=== PATIENT | female | born 1985 | race Caucasian/White ===

== ENCOUNTER 2018-03-17 13:46 | Observation (INO) | payer OTHER ==
[~2018-03-17 13:46] MED LIST: DEXAMETHASONE 4 MG/ML 1 ML INJ; ONDANSETRON 4 MG INJ; ROCURONIUM 50 MG INJ
[2018-03-17] MEDS ORDERED: FENTAnyl 50 MCG/ML VIAL (15:29)
[2018-03-17] MEDS ORDERED: MIDAZOLAM 1 MG/ML 2 ML INJ (15:29)
[2018-03-17] MEDS ORDERED: LIDOCAINE 2% (SDV) 5 ML INJ (15:30)
[2018-03-17] MEDS ORDERED: SUCCINYLCHOLINE CHLORIDE 100 MG/5 ML SYG IV (15:30)
[2018-03-17] MEDS ORDERED: PROPOFOL 20 ML (15:30)
[2018-03-17] MEDS ORDERED: METOCLOPRAMIDE 10 MG INJ (15:31)
[2018-03-17] MEDS ORDERED: ACETAMINOPHEN 1000MG/100ML IV 100 ML (15:42)
[2018-03-17] MEDS ORDERED: PROVENTIL HFA 6.7GM INHALER (17:00)
[2018-03-17] MEDS ORDERED: LABETALOL HCL 20MG INJ IV (18:00)
[2018-03-17] MEDS ORDERED: IPRATROPIUM (NEB) 0.5 MG/2.5 ML AMP HHN (18:00)
[2018-03-17] MEDS ORDERED: HYDROmorphONE 1 MG/5 ML IV SYRINGE IV ×2 (18:00)
[2018-03-17] MEDS ORDERED: MEPERIDINE 25 MG INJ IV (18:00)
[2018-03-17] MEDS ORDERED: FENTAnyl 50 MCG/ML VIAL IV (18:00)
[2018-03-17] MEDS ORDERED: DIPHENHYDRAMINE 50 MG INJ IV (18:00)
[2018-03-17] MEDS ORDERED: hydrALAzine 20 MG INJ IV (18:00)
[2018-03-17] MEDS ORDERED: ONDANSETRON 4 MG INJ IV (18:00)
[2018-03-17] MEDS: FENTAnyl 50 MCG/ML VIAL IV (18:12)
[2018-03-17] MEDS: METOPROLOL 5 MG INJ IV (18:16)
[2018-03-17 19:35] LABS: ADD MAN DIFF? NO
[2018-03-17 19:38] LABS: BASOPHILS % 0.3 % (0.0-2.0); EOSINOPHILS # 0.1 10^3/ul (0.0-0.5); EOSINOPHILS % 0.4 % (0.0-7.0); HEMATOCRIT 40.9 % (37.0-47.0); HEMOGLOBIN 14.1 g/dl (12.0-16.0); LYMPHOCYTES # 1.2 10^3/ul (0.8-2.9); LYMPHOCYTES % 8.8 % (15.0-51.0); MEAN CORPUSCULAR HEMOGLOBIN 28.5 pg (29.0-33.0); MEAN CORPUSCULAR HGB CONC 34.5 g/dl (32.0-37.0); MEAN CORPUSCULAR VOLUME 82.8 fl (82.0-101.0); MEAN PLATELET VOLUME 10.3 fl (7.4-10.4); MONOCYTE # 0.3 10^3/ul (0.3-0.9); MONOCYTES % 2.1 % (0.0-11.0); NEUTROPHIL # 12.1 10^3/ul (1.6-7.5); NEUTROPHILS % 87.9 % (39.0-77.0); PLATELET COUNT 347 10^3/UL (140-415); RED BLOOD COUNT 4.94 10^6/ul (4.20-5.40); RED CELL DISTRIBUTION WIDTH 12.7 % (11.5-14.5)
[2018-03-17 19:38] LABS: WHITE BLOOD COUNT 13.7 10^3/ul (4.8-10.8)
[2018-03-17 19:56] LABS: HEMOGLOBIN A1C 6.2 % (0-5.9)
[2018-03-17 19:59] LABS: ANION GAP 14 (8-16); BLOOD UREA NITROGEN 10 mg/dl (7-20); CALCIUM 8.7 mg/dl (8.4-10.2); CARBON DIOXIDE 27 mmol/L (21-31); CHLORIDE 103 mmol/L (97-110); CREATININE 0.86 mg/dl (0.44-1.00); GLUCOSE 137 mg/dl (70-220); POTASSIUM 3.5 mmol/L (3.5-5.1); SODIUM 140 mmol/L (135-144)
[2018-03-17 20:08] LABS: B-TYPE NATRIURETIC PEPTIDE 77 PG/ML (0-125)
[2018-03-17] MEDS ORDERED: FAMOTIDINE 20 MG TAB PO (21:00)
[2018-03-17] MEDS: KETOROLAC 30 MG INJ IV (21:52)
[2018-03-18] MEDS: KETOROLAC 30 MG INJ IV ×2 (05:23→11:43)
[2018-03-18] MEDS: METOPROLOL 5 MG INJ IV (08:44)
[2018-03-18] MEDS: LISINOPRIL 20 MG TAB PO ×2 (08:49→16:20)
[2018-03-18] MEDS: ACETAMINOPHEN 325 MG TAB PO (14:12)
== END 2018-03-18 19:00 | disposition home or self-care (01) ==
LOC: SDS 13:46 → REC 17:35 → TEL 18:54
DX: J35.01 Chronic tonsillitis (principal); E66.01 Morbid (severe) obesity due to excess calories; Z68.42 Body mass index [BMI] 45.0-49.9, adult; E78.5 Hyperlipidemia, unspecified; K21.9 Gastro-esophageal reflux disease without esophagitis; G47.30 Sleep apnea, unspecified; Z86.73 Personal history of transient ischemic attack (TIA), and cerebral infarction without residual deficits
CPT/HCPCS: 42826; 80048; 83036; 83880; 84703; 85025; 88304; 92610; 99217

== ENCOUNTER 2018-06-05 12:33 | Day surgery (SDC) | payer OTHER ==
[2018-06-05 13:48] LABS: ADD MAN DIFF? NO
[2018-06-05 13:51] LABS: WHITE BLOOD COUNT 9.2 10^3/ul (4.8-10.8)
[2018-06-05 13:51] LABS: BASOPHILS % 0.4 % (0.0-2.0); EOSINOPHILS # 0.2 10^3/ul (0.0-0.5); HEMATOCRIT 40.7 % (37.0-47.0); LYMPHOCYTES # 2.6 10^3/ul (0.8-2.9); LYMPHOCYTES % 28.3 % (15.0-51.0); MEAN CORPUSCULAR HEMOGLOBIN 27.6 pg (29.0-33.0); MEAN CORPUSCULAR HGB CONC 34.4 g/dl (32.0-37.0); MEAN CORPUSCULAR VOLUME 80.1 fl (82.0-101.0); MEAN PLATELET VOLUME 10.2 fl (7.4-10.4); MONOCYTE # 0.7 10^3/ul (0.3-0.9); MONOCYTES % 7.9 % (0.0-11.0); NEUTROPHIL # 5.6 10^3/ul (1.6-7.5); NEUTROPHILS % 61.1 % (39.0-77.0); PLATELET COUNT 298 10^3/UL (140-415); RED BLOOD COUNT 5.08 10^6/ul (4.20-5.40); RED CELL DISTRIBUTION WIDTH 13.1 % (11.5-14.5)
[2018-06-05] MEDS ORDERED: CEFAZOLIN 2 GM/50 ML (PMX) 50 ML IVPB (14:00)
[2018-06-05] MEDS ORDERED: SOD CHLORIDE 0.9% 1,000 ML IV (14:00)
[2018-06-05 14:08] LABS: ALANINE AMINOTRANSFERASE 27 IU/L (13-69); ALBUMIN 3.8 g/dl (3.3-4.9); ALBUMIN/GLOBULIN RATIO 1.05; ALKALINE PHOSPHATASE 81 IU/L (42-121); ANION GAP 15 (8-16); ASPARTATE AMINO TRANSFERASE 23 IU/L (15-46); BILIRUBIN,INDIRECT 1.3 mg/dl (0-1.1); BILIRUBIN,TOTAL 1.3 mg/dl (0.2-1.3); BLOOD UREA NITROGEN 8 mg/dl (7-20); CALCIUM 9.1 mg/dl (8.4-10.2); CARBON DIOXIDE 23 mmol/L (21-31); CHLORIDE 104 mmol/L (97-110); CREATININE 0.71 mg/dl (0.44-1.00); GLUCOSE 89 mg/dl (70-220); POTASSIUM 3.7 mmol/L (3.5-5.1); SODIUM 138 mmol/L (135-144); TOTAL PROTEIN 7.4 g/dl (6.1-8.1)
[2018-06-05 14:11] LABS: INR 0.89; PROTIME 12.1 Sec (11.9-14.9); PT RATIO 0.9
[2018-06-05 14:12] LABS: PARTIAL THROMBOPLASTIN TIME 29.2 Sec (23.0-35.0)
[2018-06-05] MEDS ORDERED: MIDAZOLAM 1 MG/ML 2 ML INJ (16:41)
[2018-06-05] MEDS ORDERED: CEFAZOLIN 1 GM INJ (16:43)
[2018-06-05] MEDS ORDERED: FENTAnyl 50 MCG/ML VIAL (16:43)
[2018-06-05] MEDS ORDERED: PROPOFOL 20 ML (16:43)
[2018-06-05] MEDS: BUPIVACAINE 0.5% (SDV) 30 ML INJ (16:59)
[2018-06-05] MEDS ORDERED: HYDROmorphONE 1 MG/5 ML IV SYRINGE IV ×3 (17:00)
[2018-06-05] MEDS ORDERED: hydrALAzine 20 MG INJ IV (17:00)
[2018-06-05] MEDS ORDERED: ONDANSETRON 4 MG INJ IV (17:00)
[2018-06-05] MEDS ORDERED: LABETALOL HCL 20MG INJ IV (17:00)
[2018-06-05] MEDS ORDERED: MEPERIDINE 25 MG INJ IV (17:00)
[2018-06-05] MEDS ORDERED: DIPHENHYDRAMINE 50 MG INJ IV (17:00)
[2018-06-05] MEDS: LIDOCAINE 2% (MDV) 20 ML INJ (17:00)
[2018-06-05] MEDS ORDERED: OXYCODONE/ACETAMINOPHEN (5/325) TAB PO ×2 (17:00)
[2018-06-05] MEDS ORDERED: HYDROCODONE/APAP (5/325) TAB PO (17:30)
== END 2018-06-05 18:20 | disposition home or self-care (01) ==
LOC: SDS 12:33
DX: D23.62 Other benign neoplasm of skin of left upper limb, including shoulder (principal)
CPT/HCPCS: 14001; 80053; 85025; 85610; 85730; 88307; 88341; 88342

== ENCOUNTER 2018-09-25 12:03 | Day surgery (SDC) | payer OTHER ==
[~2018-09-25 12:03] MED LIST changes: +CEFAZOLIN 2 GM/50 ML (PMX) 50 ML IVPB; -DEXAMETHASONE 4 MG/ML 1 ML INJ; -ONDANSETRON 4 MG INJ; -ROCURONIUM 50 MG INJ
[2018-09-25] MEDS ORDERED: FENTAnyl 50 MCG/ML VIAL ×2 (15:19→15:40)
[2018-09-25] MEDS ORDERED: MIDAZOLAM 1 MG/ML 2 ML INJ (15:19)
[2018-09-25] MEDS: BUPIVACAINE 0.25% (MPF) 30 ML INJ (15:47)
[2018-09-25] MEDS ORDERED: LIDOCAINE 2% (SDV) 5 ML INJ (15:55)
[2018-09-25] MEDS ORDERED: PROPOFOL 20 ML (15:55)
[2018-09-25] MEDS ORDERED: CEFAZOLIN 1 GM INJ (15:56)
[2018-09-25] MEDS ORDERED: ONDANSETRON 4 MG INJ (15:56)
[2018-09-25] MEDS ORDERED: HYDROCODONE/APAP (5/325) TAB PO (16:00)
[2018-09-25] MEDS: HYDROmorphONE 1 MG/5 ML IV SYRINGE IV (16:29)
[2018-09-25] MEDS ORDERED: hydrALAzine 20 MG INJ IV (16:30)
[2018-09-25] MEDS ORDERED: DIPHENHYDRAMINE 50 MG INJ IV (16:30)
[2018-09-25] MEDS ORDERED: MEPERIDINE 25 MG INJ IV (16:30)
[2018-09-25] MEDS ORDERED: HYDROmorphONE 1 MG/5 ML IV SYRINGE IV (16:30)
[2018-09-25] MEDS ORDERED: FENTAnyl 50 MCG/ML VIAL IV (16:30)
[2018-09-25] MEDS ORDERED: LABETALOL HCL 20MG INJ IV (16:30)
[2018-09-25] MEDS ORDERED: METOCLOPRAMIDE 10 MG INJ IV (16:30)
[2018-09-25] MEDS ORDERED: ONDANSETRON 4 MG INJ IV (16:30)
[2018-09-26] MEDS ORDERED: INFLUENZA VIRUS VACCINE 0.5 ML (DISPENSING) IM* (09:00)
== END 2018-09-25 17:52 | disposition home or self-care (01) ==
LOC: SDS 12:03
DX: D23.62 Other benign neoplasm of skin of left upper limb, including shoulder (principal); M79.89 Other specified soft tissue disorders; I10 Essential (primary) hypertension; E78.5 Hyperlipidemia, unspecified; E66.01 Morbid (severe) obesity due to excess calories; Z68.41 Body mass index [BMI] 40.0-44.9, adult
CPT/HCPCS: 14301; 84703; 88309; 90686